=== PATIENT | female | born 1995 | race African-American/Black ===

== ENCOUNTER 2024-03-27 04:43 | Emergency (ER) | payer OTHER ==
[~2024-03-27] VITALS: Ht 157.5 cm; Wt 99.7 kg
[2024-03-27] MEDS ORDERED: ACETAMINOPHEN 500 MG TAB PO ONE (05:00)
[2024-03-27] MEDS ORDERED: NAPROXEN 250 MG/TAB PO ONE (05:00)
[2024-03-27] MEDS ORDERED: traMADol HCL 50 MG/TAB PO ONE (05:00)
[2024-03-27] MEDS ORDERED: AMOXICILLIN TRIHYDRATE 500 MG/CAP PO ONE (05:00)
[2024-03-27] MEDS ORDERED: TRAMADOL HCL50 MG PO ×2 (05:02→05:08)
[2024-03-27] MEDS ORDERED: AMOXICILLIN500 MG PO (05:02)
[2024-03-27] MEDS ORDERED: NAPROXEN375 MG PO (05:02)
[2024-03-27 05:07] VITALS: BP 137/92
== END 2024-03-27 05:20 | disposition home or self-care (01) ==
LOC: ED 04:43
DX: K02.9 Dental caries, unspecified (principal); K04.7 Periapical abscess without sinus

== ENCOUNTER 2024-09-14 05:14 | Emergency (ER) | payer SELFPAY ==
[~2024-09-14] VITALS: Ht 157.5 cm; Wt 90.0 kg
[~2024-09-14 05:14] MED LIST: AMOXICILLIN500 MG PO; NAPROXEN375 MG PO; TRAMADOL HCL50 MG PO
[2024-09-14 05:26] VITALS: BP 117/61
[2024-09-14] MEDS ORDERED: SODIUM CHLORIDE 0.9% 1,000 ML IV STA (05:29)
[2024-09-14] MEDS ORDERED: MORPHINE SULFATE 4 MG/ML VIAL IV STA (05:29)
[2024-09-14] MEDS ORDERED: PROMETHAZINE HCL 25 MG/ML AMP IV ONE (05:30)
[2024-09-14 05:31] VITALS: BP 127/82
[2024-09-14 05:46] VITALS: BP 112/62
[2024-09-14 06:03] LABS: BASO% 0.2 % (0-3); EOS% 0.8 % (0-8); HEMATOCRIT 37.9 % (37.0-47.0); HEMOGLOBIN 12.2 g/dl (12.0-16.0); IMMATURE GRANULOCYTES 0.5 % (0.0-5.0); LYMPH% 20.6 % (15-41); MEAN CELL VOLUME 86.5 fL CALC (80.0-100.0); MEAN CORPUSCULAR HGB 27.9 pG CALC (26.0-32.0); MEAN CORPUSCULAR HGB CONC 32.2 g/dL CAL (32.0-36.0); MONO% 5.4 % (2-13); NEUT# 4.71 thou/uL (2.00-7.15); NEUT% 72.5 % (42-76); RED BLOOD COUNT 4.38 mill/uL (4.20-5.60); RED CELL DISTRI WIDTH 14.3 % (11.5-15.5)
[2024-09-14 06:18] LABS: ALBUMIN 3.7 g/dL (3.2-5.0); BILIRUBIN, TOTAL 0.6 mg/dL (0.02-1.3); CREATININE 0.5 mg/dL (0.5-1.0); POTASSIUM 4.5 mmol/l (3.5-5.1); TOTAL PROTEIN 7.2 g/dL (6.3-8.2)
[2024-09-14 06:24] LABS: URINE BILIRUBIN - DIPSTICK Negative (NEGATIVE); URINE GLUCOSE - DIPSTICK Negative (NEGATIVE); URINE KETONE Negative (NEGATIVE); URINE NITRITE - DIPSTICK Negative (Negative); URINE PROTEIN - DIPSTICK Negative (NEG-TRACE); URINE SPECIFIC GRAVITY >=1.030; URINE UROBILINOGEN - DIPSTICK 0.2 E.U./dL (0.2)
[2024-09-14 06:27] LABS: URINE COLOR Yellow; URINE LEUK ESTERASE Small (NEGATIVE)
[2024-09-14 06:28] LABS: URINE BLOOD DIPSTICK Negative (NEGATIVE)
[2024-09-14 06:29] LABS: URINE BACTERIA MANY hpf; URINE EPITHELIAL CELLS MANY EPI/hpf (0-FEW)
[2024-09-14] MEDS ORDERED: KETOROLAC TROMETHAMINE 30 MG/ML SDV IV ONE (06:40)
[2024-09-14] MEDS ORDERED: NITROFURANTOIN 100 MG/CAP PO ONE (07:30)
[2024-09-14 07:34] VITALS: BP 94/74
[2024-09-14] MEDS ORDERED: MACROBID100 M1 PO (07:41)
[2024-09-14 07:55] VITALS: BP 117/87
[2024-09-14 08:04] VITALS: BP 117/87
== END 2024-09-14 08:00 | disposition home or self-care (01) | DRG 832 ==
LOC: ED 05:14
PROVIDERS: Family Medicine
DX: O23.40 Unspecified infection of urinary tract in pregnancy, unspecified trimester (principal); N39.0 Urinary tract infection, site not specified; O99.619 Diseases of the digestive system complicating pregnancy, unspecified trimester; K80.20 Calculus of gallbladder without cholecystitis without obstruction; O09.30 Supervision of pregnancy with insufficient antenatal care, unspecified trimester; Z3A.00 Weeks of gestation of pregnancy not specified
CPT/HCPCS: J2550

== ENCOUNTER 2024-11-30 09:51 | Emergency (ER) | payer SELFPAY ==
[2024-11-30] VITALS (7 sets, daily range): BP systolic 111–143; BP diastolic 60–103
[~2024-11-30] VITALS: Ht 157.5 cm; Wt 122.4 kg
[~2024-11-30 09:51] MED LIST changes: +MACROBID100 M1 PO
[2024-11-30 11:03] LABS: BASO% 0.4 % (0-3); EOS% 1.4 % (0-8); IMMATURE GRANULOCYTES 0.5 % (0.0-5.0); LYMPH% 23.3 % (15-41); MEAN CELL VOLUME 81.6 fL CALC (80.0-100.0); MEAN CORPUSCULAR HGB 26.8 pG CALC (26.0-32.0); MEAN CORPUSCULAR HGB CONC 32.8 g/dL CAL (32.0-36.0); MONO% 6.6 % (2-13); NEUT# 3.81 thou/uL (2.00-7.15); NEUT% 67.8 % (42-76); RED BLOOD COUNT 3.81 mill/uL (4.20-5.60); RED CELL DISTRI WIDTH 13.6 % (11.5-15.5)
[2024-11-30 11:06] LABS: HEMATOCRIT 31.1 % (37.0-47.0); HEMOGLOBIN 10.2 g/dl (12.0-16.0)
[2024-11-30 11:33] LABS: CREATININE 0.5 mg/dL (0.5-1.0); POTASSIUM 3.8 mmol/l (3.5-5.1); TOTAL PROTEIN 6.1 g/dL (6.3-8.2)
[2024-11-30 11:38] LABS: ALBUMIN 2.9 g/dL (3.2-5.0); BILIRUBIN, TOTAL 0.3 mg/dL (0.02-1.3)
== END 2024-11-30 11:42 | disposition home or self-care (01) | DRG 833 ==
LOC: ED 09:51
PROVIDERS: Family Medicine
DX: O36.8130 Decreased fetal movements, third trimester, not applicable or unspecified (principal); Z3A.39 39 weeks gestation of pregnancy